=== PATIENT | female | born 1945 | race Caucasian/White ===

== ENCOUNTER 2024-05-29 11:09 | Observation (INO) | payer MEDICARE, SELFPAY ==
[2024-05-29 11:16] VITALS: BP 134/61; PULSE 62; RESP 18; TEMP 36.4; O2SAT 98; BMI 22.1
--- NOTE | 2024-05-29 11:28 | ED_ITS ---
HPI - Fall General Chief Complaint: Fall Stated Complaint: Fall, Mid back pain Time Seen by Provider: 05/29/24 11:21 Source: EMS Mode of arrival: EMS History of Present Illness HPI Narrative: Patient is 78-year-old healthy female who had remote cardiac surgery as a child presents today as modified trauma. She fell down the das on a boot injuring the right side of her back. She did not hit her head or lose consciousness no neck pain. She has not on any anticoagulation or antiplatelet medication. She is complaining of some left knee pain as well. It is quite painful to move and breathe. Related Data Home Medications Medication Instructions Recorded Confirmed atorvastatin 10 mg tablet (Lipitor) 10 mg PO DAILY 05/29/24 05/29/24 diclofenac sodium 75 mg 75 mg PO BID PRN Pain, Moderate 05/29/24 05/29/24 tablet,delayed release zolpidem 10 mg tablet 10 mg PO BEDTIME PRN Sleep 05/29/24 05/29/24 Allergies Allergy/AdvReac Type Severity Reaction Status Date / Time No Known Drug Allergies Allergy Verified 05/29/24 11:47 Patient History Social History household members: spouse Smoking Status: Never smoker alcohol intake: current Smoking Status: Never smoker alcohol intake frequency: 0-2 drinks per day Substance Use Type: marijuana Exam Initial Vital Signs Initial Vital Signs: Vital Signs Temperature 97.6 F 05/29/24 11:16 Pulse Rate 62 05/29/24 11:16 Respiratory Rate 18 05/29/24 11:16 Blood Pressure 134/61 05/29/24 11:16 Pulse Oximetry 98 05/29/24 11:16 Oxygen Delivery Method Room Air 05/29/24 11:16 GENERAL: Alert 78-year-old female in pain HEENT: Head normocephalic,, EOMI, pupils reactive, face symmetric, moist mucous membranes, NECK: Supple, full range of motion, no step-offs, nontender on vertebrae CARDIOVASCULAR: Regular rate and rhythm without murmurs, rubs or gallops. RESPIRATORY: Breath sounds equal bilaterally, no wheezes rales or rhonchi. No crepitations, no subcutaneous air, chest is nontender, no signs of trauma ABDOMEN: Soft, nontender. Normoactive bowel sounds all 4 quadrants. No guarding or rebound. BACK: Significant scoliosis nontender over vertebrae tender right lower ribs. No obvious paradoxical movement PELVIS: stable. EXTREMITIES: Normal range of motion, no clubbing or edema. Right upper extremity: Within normal limits Left upper extremity: Within normal limits Right lower extremity: Within normal limits Left lower extremity:Within normal limits left knee is stable no significant edema or erythema NEUROLOGICAL: Cranial nerves II through XII grossly intact. Normal gait and speech. SKIN: Warm, dry, no petechiae, no rashes or lesions, no contusions or ecchymosis Course Orders Ordered: ED Orders 05/29/24 11:28 CT chest abd pel w con Stat 05/29/24 11:31 CBC Auto Diff [Complete Blood Count AUTO DIFF] Stat CMP [Comprehensive Metabolic Panel] Stat Lactate (Lactic Acid) Stat 05/29/24 14:34 Education, smoking cessation ONGOING 05/29/24 14:35 XR knee LT 3V Stat 05/29/24 14:38 Consult to Physical Therapy Evaluate & Treat RT Consult Eval and Treat NOW 05/30/24 05:00 Basic Metabolic Panel Routine Comprehensive Metabolic Panel Routine Acetaminophen (Acetaminophen 325 Mg Tablet) 650 mg PO Q6H [facility] Last Admin: 05/29/24 16:38 Dose: 650 mg Documented By: CIRO Atorvastatin Calcium (Atorvastatin 20 Mg Tablet) 10 mg PO DAILY JEFF Celecoxib (Celecoxib 200 Mg Capsule) 200 mg PO BID JEFF Docusate Sodium (Docusate 100 Mg Capsule) 200 mg PO BID JEFF Gabapentin (Gabapentin 100 Mg Capsule) 200 mg PO TID [facility] Last Admin: 05/29/24 16:38 Dose: 200 mg Documented By: CIRO Heparin Sodium (Porcine) (Heparin 5,000 Unit/Ml Vial) 5,000 unit SUBCUT BID JEFF Hydromorphone HCl (Hydromorphone 1 Mg Inj) 1 mg IV Q3H PRN PRN Reason: Pain, Severe (7-10) Last Admin: 05/29/24 17:21 Dose: 1 mg Documented By: CIRO Naloxone HCl (Naloxone 0.4 Mg/Ml Vial) 0.2 mg IV Q2MIN PRN PRN Reason: Opiate Reversal Ondansetron HCl (Ondansetron 4 Mg/2 Ml Inj) 4 mg IV Q8HR PRN PRN Reason: Nausea And Vomiting Last Admin: 05/29/24 17:49 Dose: 4 mg Documented By: CIRO Oxycodone HCl (Oxycodone Ir 5 Mg Tablet) 5 mg PO Q3H PRN PRN Reason: Pain, Moderate (4-6) Last Admin: 05/29/24 15:34 Dose: 5 mg Documented By: GILDA Sodium Chloride (Sodium Chloride 0.9% Flush) 10 ml IV PRN PRN PRN Reason: Flush Sodium Chloride (Sodium Chloride 0.9% Flush) 10 ml IV BID JEFF Zolpidem Tartrate (Zolpidem 5 Mg Tablet) 10 mg PO BEDTIME PRN PRN Reason: Sleep Discontinued Medications Acetaminophen (Acetaminophen 325 Mg Tablet) 650 mg PO Q6H [facility] Last Admin: 05/29/24 16:43 Dose: Not Given Documented By: CIRO Hydromorphone HCl (Hydromorphone 0.5 Mg Inj) 0.5 mg IV NOW ONE Stop: 05/29/24 13:45 Last Admin: 05/29/24 13:51 Dose: 0.5 mg Documented By: GILDA Ibuprofen (Ibuprofen 400 Mg Tablet) 400 mg PO Q4H [facility] Last Admin: 05/29/24 16:43 Dose: Not Given Documented By: CIRO Morphine Sulfate (Morphine 2 Mg/Ml Inj) 2 mg IV NOW ONE Stop: 05/29/24 11:30 Last Admin: 05/29/24 11:35 Dose: 2 mg Documented By: GILDA Morphine Sulfate (Morphine 2 Mg/Ml Inj) 2 mg IV NOW ONE Stop: 05/29/24 12:17 Last Admin: 05/29/24 12:19 Dose: 2 mg Documented By: GILDA Vital Signs Vital signs: Vital Signs - 8 hr 05/29/24 11:54 05/29/24 11:55 05/29/24 11:55 Pulse Rate 72 72 Blood Pressure 149/71 H Pulse Oximetry 97 97 05/29/24 12:00 05/29/24 12:00 Pulse Rate 67 Blood Pressure 145/70 H Pulse Oximetry 97 MDM - Fall Lab Data 05/29/24 11:31 05/29/24 11:31 Labs: Lab Results 05/29/24 Range/Units 11:31 WBC 9.0 (4.5-11.0) X10^3/uL RBC 4.42 (4.0-5.2) X10^6/uL Hgb 13.3 (12.0-16.0) g/dL Hct 40.0 (36-46) % MCV 90.5 (80-100) fL MCH 30.1 (26-34) PG MCHC 33.2 (30-36) % RDW 13.3 (11.6-14.8) % Plt Count 214 (150-400) X10^3/uL Neut % (Auto) 77.5 H (50-75) % Lymph % (Auto) 15.7 L (25-40) % [place] % (Auto) 5.9 (3-14) % Eos % (Auto) 0.5 L (2-4) % Baso % (Auto) 0.4 (0-2) % Neut # (Auto) 7000 (9677-7695) /uL Lymph # (Auto) 1400 (0130-0897) /uL [place] # (Auto) 500 (0-900) /uL Eos # (Auto) 0 (0-450) /uL Baso # (Auto) 0 (0-100) /uL Sodium 137 (137-145) mmol/L Potassium 3.9 (3.4-5.1) mmol/L Chloride 106 (98-107) mmol/L Carbon Dioxide 26 (22-32) mmol/L BUN 16 (7-17) mg/dL Creatinine 0.67 (0.52-1.04) mg/dL Estimated GFR > 60 (>60) mL/min BUN/Creatinine Ratio 23.9 H (6-22) Glucose 172 H (80-110) mg/dL Lactate 1.4 (0.7-2.1) mmol/L Calcium 8.6 (8.4-10.2) mg/dL Total Bilirubin 0.7 (0.2-1.3) mg/dL AST 31 (14-36) IU/L ALT 23 (<35) IU/L Alkaline Phosphatase 59 (38-126) U/L Total Protein 6.5 (6.3-8.2) g/dL Albumin 4.0 (3.5-5.0) g/dL Globulin 2.5 (1.7-4.1) g/dL Albumin/Globulin Ratio 1.6 (1.0-2.8) Imaging Data CT scan - abdomen/pelvis: Radiologist's Impression: PROCEDURE: CT CHEST ABD PEL W CON INDICATIONS: fall down boat right post rib pain TECHNIQUE: After the administration of intravenous contrast, 5 mm thick sections acquired from the lung apices to the symphysis. 2.5 mm thick coronal and sagittal reformats were acquired. Additional 7 mm thick coronal maximum intensity projection (MIP) reformats acquired through the lungs. Optional 10-minute delayed imaging may be performed from the kidneys to the bladder. For radiation dose reduction, the following was used: automated exposure control, adjustment of mA and/or kV according to patient size. COMPARISON: None. FINDINGS: Image quality: Diagnostic. CHEST: Lower Neck: No enlarged lymph nodes. Thyroid: No thyroid nodules which require sonographic evaluation. Axillae: No enlarged lymph nodes. Chest Wall: No subcutaneous gas. Lungs and Pleura: Small right pleural effusion. Right basilar density is more likely atelectasis than pulmonary contusion. No pneumothorax. Left lung is clear. Mediastinum: No mediastinal hematomas. Cardiomegaly. Remote midline sternotomy. No pericardial effusion. Thoracic aorta and pulmonary arteries demonstrate normal size and enhancement. No mediastinal or hilar adenopathy. Esophagus is normal in caliber. No hiatal hernia. ABDOMEN: Liver: No lacerations. Gallbladder: Surgically absent Biliary ducts: No biliary dilation. Pancreas: Homogenous enhancement. Spleen: Homogenous enhancement without laceration or hematoma. Adrenal Glands: Symmetric enhancement. Kidneys and Ureters: Symmetric enhancement. No hydronephrosis. No solid mass. No complex renal cystic lesion which requires follow up. Stomach and Bowel: Normal colonic caliber, without significant wall thickening. Sigmoid diverticulosis. Peritoneum: No abnormal intraperitoneal fluid. No free air. Ventral Wall: No hernia. Abdominal Nodes: No retroperitoneal or mesenteric adenopathy by size criteria. Vessels: Aorta and inferior vena cava are normal in size. PELVIS: Pelvic Organs: Uterus is surgically absent.. Bladder: Normal thickness. Pelvic Nodes: No enlarged lymph nodes. Miscellaneous: No inguinal hernias are seen. Bones: Pelvic ring and hip joints appear intact. there are numerous right-sided rib fractures present. There is a markedly comminuted right 11th rib fracture, a segmental markedly comminuted right 10th rib fracture, a comminuted and significantly displaced right 9th rib fracture, a displaced right 8th rib fracture with overriding, and a nondisplaced right 7th rib fracture. These are all posterior. Moderate to severe S shaped thoracolumbar scoliotic curvature. IMPRESSION: 1. Numerous posterior right-sided rib fractures involving the 7th through 11th ribs, many of them are significantly comminuted and displaced 2. Minimal right pleural effusion and associated atelectasis. No pneumothorax. 3. No significant sequelae of acute trauma in the abdomen and pelvis. 4. Remote cholecystectomy and hysterectomy. 5. Diverticulosis. 6. Moderate to severe S shaped thoracolumbar scoliotic curvature. Dictated by: Jake Stephenson M.D. on 05/29/2024 at 12:40 Extremity x-ray #1: Radiologist's Impression: PROCEDURE: XR KNEE LT 3V INDICATIONS: pain TECHNIQUE: 3 views of the knee were acquired. COMPARISON: None. FINDINGS: Bones: No fractures or dislocations. No suspicious bony lesions. 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 Soft tissues: No joint effusion. No suspicious soft tissue calcifications. IMPRESSION: No acute bony abnormality or significant effusion. Degenerative arthritis. Dictated by: Jake Stephenson M.D. on 05/29/2024 at 16:14 MDM Narrative Medical decision making narrative: Patient is 78-year-old female presents with a modified trauma significant right side back pain. CT does show multiple, new mid rib fractures without evidence of pulmonary contusion pneumothorax or liver laceration. She has received multiple doses of pain medication including morphine and Dilaudid. Respiratory therapy has given her incentive spirometer instructions Blood work has been reviewed hemoglobin 13.3 hematocrit 40 creatinine 0.67 Patient elderly female 78 years old with multiple rib fractures requiring multiple doses of pain medication would benefit from observation with Trauma Service. 14:40 Dr. Heller updated patient's symptoms test results and kindly accepts patient Discharge Plan Departure Patient Disposition: Admitted as Observation Clinical Impression: Multiple fractures of ribs of right side Admit Date/Time: 05/29/24 14:58 Admit Provider: Estefany Heller
[2024-05-29] MEDS: MORPHINE 2 MG/ML INJ IV ×2 (11:35→12:19)
[2024-05-29 11:46] LABS: Add Manual Diff / Slide Review NO; Basophils Absolute Auto 0 /uL (0-100); Basophils Percent Auto 0.4 % (0-2); Eosinophils Absolute Auto 0 /uL (0-450); Eosinophils Percent Auto 0.5 % (2-4); Hemoglobin 13.3 g/dL (12.0-16.0); Lymphocytes Absolute Auto 1400 /uL (1100-4500); Lymphocytes Percent Auto 15.7 % (25-40); Mean Corpuscular HGB Conc 33.2 % (30-36); Mean Corpuscular Hemoglobin 30.1 PG (26-34); Mean Corpuscular Volume 90.5 fL (80-100); Monocytes Absolute Auto 500 /uL (0-900); Monocytes Percent Auto 5.9 % (3-14); Neutrophils Absolute Auto 7000 /uL (1500-7000); Neutrophils Percent Auto 77.5 % (50-75); Platelet Count 214 X10^3/uL (150-400); Red Blood Cell Count 4.42 X10^6/uL (4.0-5.2); Red Cell Distribution Width 13.3 % (11.6-14.8)
[2024-05-29 11:54] VITALS: PULSE 72; O2SAT 97
[2024-05-29 11:55] VITALS: BP 149/71; PULSE 72; O2SAT 97
[2024-05-29 12:00] VITALS: BP 145/70; PULSE 67; O2SAT 97
[2024-05-29 12:01] LABS: Alanine Aminotransferase 23 IU/L (<35); Albumin Globulin Ratio 1.6 (1.0-2.8); Alkaline Phosphatase 59 U/L (38-126); Aspartate Aminotransferase 31 IU/L (14-36); BUN Creatinine Ratio 23.9 (6-22); Bilirubin Total 0.7 mg/dL (0.2-1.3); Blood Urea Nitrogen 16 mg/dL (7-17); Calcium 8.6 mg/dL (8.4-10.2); Carbon Dioxide 26 mmol/L (22-32); Chloride 106 mmol/L (98-107); Estimated Glomerular Filt Rate > 60 mL/min (>60); Globulin 2.5 g/dL (1.7-4.1); Glucose 172 mg/dL (80-110); HEMOLYSIS 20 (0-50); Potassium 3.9 mmol/L (3.4-5.1); Sodium 137 mmol/L (137-145); Total Protein 6.5 g/dL (6.3-8.2)
[2024-05-29 12:02] LABS: Lactate (Lactic Acid) 1.4 mmol/L (0.7-2.1)
[2024-05-29] MEDS: HYDROMORPHONE 0.5 MG INJ IV (13:51)
--- NOTE | 2024-05-29 14:35 | DI.RAD.S_ITS ---
PROCEDURE: XR KNEE LT 3V INDICATIONS: pain TECHNIQUE: 3 views of the knee were acquired. COMPARISON: None. FINDINGS: Bones: No fractures or dislocations. No suspicious bony lesions. 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 Soft tissues: No joint effusion. No suspicious soft tissue calcifications. IMPRESSION: No acute bony abnormality or significant effusion. Degenerative arthritis. Dictated by: Jake Stephenson M.D. on 05/29/2024 at 16:14 Approved by: Jake Stephenson M.D. on 05/29/2024 at 16:14
[2024-05-29] MEDS: OXYCODONE IR 5 MG TABLET PO ×2 (15:34→20:12)
--- NOTE | 2024-05-29 15:53 | DI.RAD.S_ITS ---
PROCEDURE: XR CHEST 1V INDICATIONS: trauma TECHNIQUE: One view of the chest was acquired. COMPARISON: None. FINDINGS: Surgical changes and devices: Median sternotomy wires. Lungs and pleura: Lungs are clear. No pleural effusions or pneumothorax. Mediastinum: Mediastinal contours appear normal. Heart size is enlarged. Bones and chest wall: No suspicious bony lesions. Dextroscoliotic curvature. Overlying soft tissues appear unremarkable. IMPRESSION: Cardiomegaly. No acute pulmonary process. Rib fractures are better seen on prior CT scan. Dictated by: Papo Ventura M.D. on 05/29/2024 at 16:58 Approved by: Papo Ventura M.D. on 05/29/2024 at 16:59
--- NOTE | 2024-05-29 15:56 | PM.HP.1 ---
History of Present Illness History of Present Illness Date Patient Seen: 05/29/24 Time Patient Seen: 15:57 Chief complaint: Fall, Mid back pain Narrative: Accidentally fell from deck of boat into the cabin space. Sharp mid back pain, SOB, left knee pain. No LOC PFSH Social History Smoking Status: Never smoker Meds Home Medications and Allergies Home Medications Medication Instructions Recorded Confirmed Type TETANUS & DIPHTHERIA TOX,ADULT 0.5 ml IM ONCE ##1 01/29/12 Rx (Tetanus Diphtheria Toxoids) TRIAMCINOLONE ACETONIDE (#KENALOG) 0 TP BID ##1 01/29/12 Rx fluoxetine 10 mg tablet 10 mg PO QDAY ##90 01/29/12 Rx zolpidem 10 mg tablet 10 mg NG HSP ##30 01/29/12 Rx AZITHROMYCIN (#ZITHROMAX Z-LILI) 250 mg PO QDAY ##6 04/18/12 Rx ciprofloxacin HCl 500 mg tablet 500 mg PO BID ##6 12 Rx (Cipro) Allergies Allergy/AdvReac Type Severity Reaction Status Date / Time No Known Drug Allergies Allergy Verified 05/29/24 11:47 Review of Systems Review of Systems Narrative: new dx of arthritis, takes calcium supplements for decreased bone density ROS: Yes All systems reviewed with the patient and are negative except as otherwise documented Exam Vital Signs (past 8 hours): - 05/29/24 11:16 05/29/24 11:54 05/29/24 11:55 Temperature 97.6 F Pulse Rate 62 72 72 Respiratory Rate 18 Blood Pressure 134/61 Pulse Oximetry 98 97 97 Oxygen Delivery Method Room Air 05/29/24 11:55 05/29/24 12:00 05/29/24 12:00 Temperature Pulse Rate 67 Respiratory Rate Blood Pressure 149/71 H 145/70 H Pulse Oximetry 97 Oxygen Delivery Method Oxygen Delivery Method Room Air Narrative Exam Narrative: Jones CT films reviewed and left knee reviewed. Right sided rib fractures 7-11. Const General: cooperative and healthy appearing Nutritional Appearance: average body habitus Orientation: alert, awake and oriented x3 HENMT Head: normocephalic and atraumatic Ears: hearing grossly normal bilaterally Face and sinus: normal facial exam Eyes General: appearance normal, both eyes and all related structures Sclera: sclerae normal Neck Neck: trachea midline and No JVD Chest Chest: tenderness (right posterior. no crepitus) Resp Effort & Inspection: normal respiratory effort and able to speak in complete sentences Cardio Rate: regular rate Rhythm: regular rhythm GI Palpation: soft and No tender Back/Spine/Pelvis Back: back tenderness (right sided, no crepitus) Skin General: atrophy Neuro General: patient alert, patient awake and patient oriented x3 Cognition: normal cognition Speech: speech normal Extrem General: normal exam except as noted (mild medial edema, films show no chris injury) Psych Mental Status: mental status grossly normal Speech and Movement: speech and movement normal Affect: normal affect Judgment: judgment good Objective Labs 05/29/24 11:31 05/29/24 11:31 Labs: Laboratory Results - last 24 hr 05/29/24 11:31 WBC 9.0 RBC 4.42 Hgb 13.3 Hct 40.0 MCV 90.5 MCH 30.1 MCHC 33.2 RDW 13.3 Plt Count 214 Neut % (Auto) 77.5 H Lymph % (Auto) 15.7 L [place] % (Auto) 5.9 Eos % (Auto) 0.5 L Baso % (Auto) 0.4 Neut # (Auto) 7000 Lymph # (Auto) 1400 [place] # (Auto) 500 Eos # (Auto) 0 Baso # (Auto) 0 Sodium 137 Potassium 3.9 Chloride 106 Carbon Dioxide 26 BUN 16 Creatinine 0.67 Estimated GFR > 60 BUN/Creatinine Ratio 23.9 H Glucose 172 H Lactate 1.4 Calcium 8.6 Total Bilirubin 0.7 AST 31 ALT 23 Alkaline Phosphatase 59 Total Protein 6.5 Albumin 4.0 Globulin 2.5 Albumin/Globulin Ratio 1.6 Assessment & Plan Assessment & Plan narrative: Trauma, fall. Right sided rib fractures -. Small pleural effusion. Left knee contusion. Plan: Pulmonary toilet, pain control. Repeat CXR in am. Time-Based Coding :: 40 minutes total spent with patient and on the chart (including review of chart, obtaining history, exam, reviewing outside data, placing orders, documenting exam and treatment plan, and counseling patient) on 05/29/24.
[2024-05-29 16:15] VITALS: BP 147/63; PULSE 64; RESP 15; TEMP 36.1; O2SAT 98
[2024-05-29] MEDS: GABAPENTIN 100 MG CAPSULE 200 MG PO ×2 (16:38→20:12)
[2024-05-29] MEDS: ACETAMINOPHEN 325 MG TABLET 650 MG PO (16:38)
[2024-05-29] MEDS: HYDROMORPHONE 1 MG INJ IV (17:21)
[2024-05-29 17:25] VITALS: BMI 22.2
[2024-05-29] MEDS: ONDANSETRON 4 MG/2 ML INJ IV (17:49)
--- NOTE | 2024-05-29 19:29 | PC.NURSE ---
Admit note Pt arrived on floor, VSS, SPO2 on continuous monitoring - satting high 90s. Contacted provider about pain control, cxray and medication orders/clarification. Performed medication reconciliation with assistance from patient and family member as accurately as possible. Pt counseled on informing nurse of worsening pain, shortness of breath, chest pain and use of incentive spirometer.
[2024-05-29 20:00] VITALS: BP 135/65; PULSE 66; RESP 17; TEMP 36.6; O2SAT 97
[2024-05-29] MEDS: CELECOXIB 200 MG CAPSULE PO (20:11)
[2024-05-29] MEDS: DOCUSATE 100 MG CAPSULE 200 MG PO (20:12)
[2024-05-29] MEDS: SODIUM CHLORIDE 0.9% FLUSH 10 ML IV (20:13)
[2024-05-29] MEDS: HEPARIN 5,000 UNIT/ML VIAL 5000 UNIT SUBCUT (20:17)
[2024-05-30] VITALS: BP 119/52; PULSE 54; RESP 16; TEMP 36.4; O2SAT 96
[2024-05-30 04:00] VITALS: BP 116/75; PULSE 96; RESP 18; TEMP 36.6; O2SAT 97
[2024-05-30] MEDS: OXYCODONE IR 5 MG TABLET PO ×4 (04:13→20:09)
[2024-05-30] MEDS: ACETAMINOPHEN 325 MG TABLET 650 MG PO ×4 (04:21→23:39)
--- NOTE | 2024-05-30 05:00 | DI.RAD.S_ITS ---
PROCEDURE: XR CHEST 1V INDICATIONS: multiple rib fractures TECHNIQUE: One view of the chest was acquired. COMPARISON: [facility], CR, XR CHEST 1V, 05/29/2024, 15:57. FINDINGS: Surgical changes and devices: Median sternotomy wires are seen. Lungs and pleura: There is blunting of right costophrenic angle suggestive of small right pleural effusion. Right basilar infiltrate/atelectasis is also noted. No gross pneumothorax. Mild pulmonary vascular congestion is also seen. Mediastinum: Tortuous thoracic aorta and cardiomegaly is noted. Bones and chest wall: No suspicious bony lesions. Overlying soft tissues appear unremarkable. Moderate rightward curvature of thoracolumbar spine is seen. IMPRESSION: Cardiomegaly and mild congestion with small right pleural effusion and right basilar infiltrate versus atelectasis. No gross pneumothorax. Dictated by: Stefan Pennington M.D. on 05/30/2024 at 8:25 Approved by: Stefan Pennington M.D. on 05/30/2024 at 8:28
[2024-05-30 05:47] LABS: Add Manual Diff / Slide Review NO; Basophils Absolute Auto 0 /uL (0-100); Basophils Percent Auto 0.2 % (0-2); Eosinophils Absolute Auto 0 /uL (0-450); Eosinophils Percent Auto 0.2 % (2-4); Hemoglobin 12.5 g/dL (12.0-16.0); Lymphocytes Absolute Auto 1200 /uL (1100-4500); Lymphocytes Percent Auto 12.6 % (25-40); Mean Corpuscular HGB Conc 33.8 % (30-36); Mean Corpuscular Hemoglobin 30.2 PG (26-34); Mean Corpuscular Volume 89.4 fL (80-100); Monocytes Absolute Auto 700 /uL (0-900); Monocytes Percent Auto 7.7 % (3-14); Neutrophils Absolute Auto 7500 /uL (1500-7000); Neutrophils Percent Auto 79.3 % (50-75); Platelet Count 177 X10^3/uL (150-400); Red Blood Cell Count 4.14 X10^6/uL (4.0-5.2); Red Cell Distribution Width 13.3 % (11.6-14.8); White Blood Cell Count 9.4 X10^3/uL (4.5-11.0)
[2024-05-30 06:08] LABS: Alanine Aminotransferase 19 IU/L (<35); Albumin 3.4 g/dL (3.5-5.0); Albumin Globulin Ratio 1.5 (1.0-2.8); Alkaline Phosphatase 57 U/L (38-126); Aspartate Aminotransferase 26 IU/L (14-36); Bilirubin Total 0.8 mg/dL (0.2-1.3); Blood Urea Nitrogen 10 mg/dL (7-17); Calcium 8.5 mg/dL (8.4-10.2); Carbon Dioxide 30 mmol/L (22-32); Chloride 106 mmol/L (98-107); Estimated Glomerular Filt Rate > 60 mL/min (>60); Globulin 2.2 g/dL (1.7-4.1); Glucose 82 mg/dL (80-110); HEMOLYSIS < 15 (0-50); Sodium 136 mmol/L (137-145); Total Protein 5.6 g/dL (6.3-8.2)
[2024-05-30 08:00] VITALS: BP 126/54; PULSE 68; RESP 15; O2SAT 95
[2024-05-30] MEDS: CELECOXIB 200 MG CAPSULE PO ×2 (09:08→20:09)
[2024-05-30] MEDS: ATORVASTATIN 20 MG TABLET 10 MG PO (09:08)
[2024-05-30] MEDS: GABAPENTIN 100 MG CAPSULE 200 MG PO ×3 (09:08→20:08)
[2024-05-30] MEDS: DOCUSATE 100 MG CAPSULE 200 MG PO ×2 (09:08→20:09)
[2024-05-30] MEDS: HYDROMORPHONE 1 MG INJ IV (09:15)
[2024-05-30] MEDS: SODIUM CHLORIDE 0.9% FLUSH 10 ML IV ×2 (09:16→20:18)
[2024-05-30] MEDS: HEPARIN 5,000 UNIT/ML VIAL 5000 UNIT SUBCUT ×2 (09:16→20:08)
--- NOTE | 2024-05-30 09:48 | PM.PN.1 ---
Subjective Subjective Date Patient Seen: 05/30/24 Time Patient Seen: 12:46 Interval history: Adequate pain control Using incentive spirometry Exam Vital Signs (past 8 hours): - 05/30/24 04:00 05/30/24 07:00 05/30/24 08:00 Temperature 97.8 F Pulse Rate 96 H 68 Respiratory Rate 18 15 Blood Pressure 116/75 126/54 L Pulse Oximetry 97 95 Oxygen Delivery Method Room Air Oxygen Flow Rate 0 0 Oxygen Delivery Method Room Air Oxygen Flow Rate 0 Narrative Exam Narrative: General elderly woman alert oriented no acute distress Chest nonlabored respiration Cardiac regular rate and rhythm. Objective Labs 05/30/24 04:06 05/30/24 04:06 Labs: Laboratory Results - last 24 hr 05/29/24 05/30/24 11:31 04:06 WBC 9.0 9.4 RBC 4.42 4.14 Hgb 13.3 12.5 Hct 40.0 37.0 MCV 90.5 89.4 MCH 30.1 30.2 MCHC 33.2 33.8 RDW 13.3 13.3 Plt Count 214 177 Neut % (Auto) 77.5 H 79.3 H Lymph % (Auto) 15.7 L 12.6 L [place] % (Auto) 5.9 7.7 Eos % (Auto) 0.5 L 0.2 L Baso % (Auto) 0.4 0.2 Neut # (Auto) 7000 7500 H Lymph # (Auto) 1400 1200 [place] # (Auto) 500 700 Eos # (Auto) 0 0 Baso # (Auto) 0 0 Sodium 137 136 L Potassium 3.9 4.0 Chloride 106 106 Carbon Dioxide 26 30 BUN 16 10 Creatinine 0.67 0.50 L Estimated GFR > 60 > 60 BUN/Creatinine Ratio 23.9 H 20.0 Glucose 172 H 82 Lactate 1.4 Calcium 8.6 8.5 Total Bilirubin 0.7 0.8 AST 31 26 ALT 23 19 Alkaline Phosphatase 59 57 Total Protein 6.5 5.6 L Albumin 4.0 3.4 L Globulin 2.5 2.2 Albumin/Globulin Ratio 1.6 1.5 PFSH Social History household members: spouse Smoking Status: Never smoker alcohol intake: current Assessment & Plan Assessment and plan (1) Multiple fractures of ribs of right side: Problem details: -incentive spirometry -multimodal pain control -physical therapy Qualifiers: Encounter type: initial encounter Fracture type: closed Qualified Code(s): S22.41XA - Multiple fractures of ribs, right side, initial encounter for closed fracture Status: Acute Time-Based Coding :: [TOTAL MINUTES] spent with patient and on the chart (including review of chart, obtaining history, exam, reviewing outside data, placing orders, documenting exam and treatment plan, and counseling patient) on [DATE]. Quality VTE Deep Vein Thrombosis/Pulmonary Embolism Present on Admission: No
[2024-05-30] MEDS: ONDANSETRON 4 MG/2 ML INJ IV (09:51)
--- NOTE | 2024-05-30 10:54 | CM.DANOTE ---
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 PCP: Dr Strong Payer: MICHAEL/BRET Reviewed chart, met w/patient and her daughter Denise, introduced self and role. Patient lives independently with spouse, [place] Patient [place] to [place] and has numerous family members available to assist throughout her recovery. Daughter planning to make reservations on multiple ferry times to ensure patient can get back to [place] upon discharge. No barriers identified at this time to patient's safe discharge home w/family to assist; close outpatient f/u recommended. CM team will plan to follow clinical course closely in case any DC needs or concerns arise. CALLIE Ayala Discharge Planning/Care Management CM Discharge Assessment Start: 05/30/24 10:51 Freq: Status: Active Protocol: Document 05/30/24 10:51 TIFFANIE (Rec: 05/30/24 10:54 TIFFANIE [id number]) Discharge Planning Assessment Assigned Dancer Or Choreographer CALLIE Abraham DPOA/Assigned Designee Name Andrei Leo, spouse [phone] Contact Information Denise Mejia, daughter Advance Directives? Yes Advance Directives on File Yes History Provided By Patient,Family Member,Medical Record Prior Living Arrangements House Household Members spouse Type of transporation used prior to Drives own vehicle admit Independent with ADL's Yes Is patient alert and oriented? Yes Barriers to Discharge No Discharge Plan Home Transportation Arrangement Family Referrals Initiated None needed
--- NOTE | 2024-05-30 11:50 | PT.IIE ---
Current Diagnoses Multiple fractures of ribs, right side, initial encounter for closed fracture (05/29/24) Physical Therapy Inpatient Evaluation/Re-Eval M1 PT/OT-IP Prior Functional Status Start: 05/30/24 13:31 Freq: NEEDED Status: Active Protocol: Document 05/30/24 11:50 AB (Rec: 05/30/24 13:46 AB [id number]) Medical Review Prior Functional Status Medical History Reviewed Yes Communication able to make needs known Mobility and Gait pt stated that she was independent with all mobilities and ambulation without AD Social History Household Members spouse Living Arrangements House Number of Floors (Floors) One Floor Number of Stairs To Enter/Railing? no steps to enter Home Environment High Toilet,Walk in Shower Home Equipment Hand Held Shower M2 PT-IP Current Condition Start: 05/30/24 13:31 Freq: NEEDED Status: Active Protocol: Document 05/30/24 11:50 AB (Rec: 05/30/24 13:46 AB [id number]) Physical Therapy Current Condition Current Condition Evaluation Date 05/30/24 Treatment Diagnosis GLF; R posterior rib fx ( 7-11 ); difficulty in walking Onset Date 05/29/24 M3 PT-IP Subjective Start: 05/30/24 13:31 Freq: NEEDED Status: Active Protocol: Document 05/30/24 11:50 AB (Rec: 05/30/24 13:46 AB [id number]) Subjective Physical Therapy Visit Type Type Initial Evaluation Visit Start Time 11:50 Visit Stop Time 12:20 Number of CUSTOMER RELATIONSHIP SPECIALIST Visits 0 Physical Therapy Visit Comments Patient Comments agreeable to do PT Therapy Pain Assessment Pain When Pain Assessed At Rest Pain Present Pain Present Pain Reported Location Left Knee Intensity 7 Scale Used Numeric (0 - 10) Pain Management Techniques Distraction,Modification of Treatment,Re-positioning, Timing of Activity with Medications Right Ribs Intensity 4 Scale Used Numeric (0 - 10) Pain Management Techniques Apply Cold,Distraction, Modification of Treatment,Re- positioning,Timing of Activity with Medications M4 PT-IP Mobility and Gait Start: 05/30/24 13:31 Freq: NEEDED Status: Active Protocol: Document 05/30/24 11:50 AB (Rec: 05/30/24 13:46 AB [id number]) PT-Bed Mobility Assessment Supine to Sit Supine to Sit Standby Assistance PT-Transfer Assessment Sit to and From Stand Sit to and from Stand Contact Guard Assistance,1 Person Assistance,Use of Upper Extremities Equipment Transfer Assistive Device None,Gait Belt Orthotic/Prosthetic Devices or Brace: No Transfers Transfer Destination Chair Transfer Technique ambulated Transfer Ability Level of Assist Contact Guard Assistance, Minimal Assistance,1 Person Assistance,Use of Upper Extremities Comments Mobility Comments pt supine in bed and agreeable to do PT. obtained PLOF and home set up from pt. BP: 133/ 78. at RA and no SOB. O2 sat 97% pt completed supine to sit SBA . pt used pillow to support R side/ribs. pt able to sit on EOB SBA. completed sit to stand CGA and ambulated in room without AD min A. presents with antalgic gait and pt tends to reach for support. pt sat on chair. educated pt regarding current mobility and safety and agreed to use an AD. educated pt on use of SPC. pt completed ambulation in room using SPC ~ 40 ft with initial min A but after a few ft CGA and cues for safety. pt agreed that she is steadier with SPC. pt sat on chair. positioned on the chair. call light and table placed within reach. daughter/grand daughter in room and agreed for pt to use SPC at this time. daughter stated that she will buy a SPC for pt. Gait Assessment Gait Gait Assistance Required: Contact Guard Assist,Minimum Assistance Distance (Feet) 40 Able to Maintain Weight Bearing Status Yes During Gait Assistive Devices Assistive Device None,Gait Belt,Straight Cane Orthotic/Prosthetic Devices or Brace: No Gait Deviations General Gait Pattern Antalgic,Decreased Stride Length,Decreased Feet Clearance Factors Limiting Gait Function Factors Limiting Gait Function Decreased Activity Tolerance, Decreased Strength,Limited Range of Motion,Pain,Poor Balance,Poor Safety Awareness PT-Balance Assessment Sitting Balance and Reactions Static Sitting Balance Ability Normal Dynamic Sitting Balance Ability Good Standing Balance and Reactions Static Standing Balance Ability Fair Dynamic Standing Balance Ability Fair Device Used SPC M5 PT-IP Objective Assessments Start: 05/30/24 13:31 Freq: NEEDED Status: Active Protocol: Document 05/30/24 11:50 AB (Rec: 05/30/24 13:46 AB [id number]) Orientation Orientation/Cognition Level of Alertness Alert Orientation Name,Place,Situation Language Function Ability No Deficits Noted Safety Awareness Decreased Safety Awareness Memory Description No Deficits Noted Gross Range of Motion Lower Extremity ROM Assessment Within Functional Limits Strength Lower Extremity Strength Assessment Within Functional Limits Sensation Assessment Sensation Gross Sensation WNL Muscle Tone Muscle Tone WNL Yes M6 PT-IP Treatment Start: 05/30/24 13:31 Freq: NEEDED Status: Active Protocol: Document 05/30/24 11:50 AB (Rec: 05/30/24 13:46 AB [id number]) Physical Therapy Treatment Education Education Provided Safety M7 PT-IP Assessment and Plan Start: 05/30/24 13:31 Freq: NEEDED Status: Active Protocol: Document 05/30/24 11:50 AB (Rec: 05/30/24 13:46 AB [id number]) PT Summary Assessment and Plan Potential Rehabilitation Potential Fair Status of Condition at Evaluation Evolving Summary Impairments Pain,ROM,Strength,Balance, Coordination,Sensation,Tone, Cognition,Bed Mobility, Transfers,Gait,Activity Tolerance Assessment Summary pt is a 78 y/o F s/p GLF and sustained R posterior rib fractures 7-. pt also c/o L knee pain but with (-) imaging result for fractures. pt requiring min A with ambulation without AD and presents with unsteady gait and L knee pain contributing to unsteadiness at this time. educated pt with use of SPC and able to ambulation CGA and cues and pt agreed to use SPC at this time. will continue to assess progress. Goals Bed Mobility Goal Independent Transfer Goal Independent,Cane Gait Goal Independent,Cane Gait Distance 200 Other Goals improve transfers and ambulation without AD mod I 300 ft Days to Meet Goals 10 Frequency of Treatment Frequency Of Treatment Once a Day Treatment Plan Physical Therapy Treatment Plan Bed Mobility Training,Transfer Training,Gait Training, Therapeutic Exercise,Balance Retraining,Discharge Planning, Hot or Cold Pack,Neuromuscular Re-ed,Coordination Retraining ,Manual Therapy Precautions Other Precautions falls Recommendations To Nursing Amount of Assist Needed 1 Person Assist Discharge Recommendations PT Discharge Recommendations Home with Assistance, Outpatient PT Equipment Needed for Home Before SPC Discharge Transportation Needs at Discharge Private Vehicle,Wheelchair/ Cabulance
[2024-05-30 12:00] VITALS: BP 132/63; PULSE 68; RESP 16; TEMP 36.6; O2SAT 97
[2024-05-30 18:00] VITALS: BP 112/50; PULSE 66; RESP 16; O2SAT 97
[2024-05-30 20:25] VITALS: BP 124/51; PULSE 61; RESP 18; TEMP 36.8; O2SAT 97
[2024-05-31] VITALS: BP 120/46; PULSE 64; RESP 18; TEMP 36.3; O2SAT 96
[2024-05-31] MEDS: OXYCODONE IR 5 MG TABLET PO ×5 (02:09→20:00)
[2024-05-31 04:00] VITALS: BP 107/49; PULSE 61; RESP 16; TEMP 36.1; O2SAT 95
[2024-05-31] MEDS: ACETAMINOPHEN 325 MG TABLET 650 MG PO ×3 (04:57→17:57)
[2024-05-31 07:50] VITALS: BP 125/55; PULSE 67; RESP 16; TEMP 36.7; O2SAT 94
[2024-05-31] MEDS: ATORVASTATIN 20 MG TABLET 10 MG PO (08:17)
[2024-05-31] MEDS: DOCUSATE 100 MG CAPSULE 200 MG PO ×2 (08:19→20:00)
[2024-05-31] MEDS: CELECOXIB 200 MG CAPSULE PO ×2 (08:19→20:00)
[2024-05-31] MEDS: HEPARIN 5,000 UNIT/ML VIAL 5000 UNIT SUBCUT ×2 (08:20→20:00)
[2024-05-31] MEDS: SODIUM CHLORIDE 0.9% FLUSH 10 ML IV ×2 (08:20→20:41)
[2024-05-31] MEDS: GABAPENTIN 100 MG CAPSULE 200 MG PO ×3 (08:20→20:00)
--- NOTE | 2024-05-31 09:00 | PT.IPTN ---
Current Diagnoses Multiple fractures of ribs, right side, initial encounter for closed fracture (05/29/24) Physical Therapy Treatment Note M2 PT-IP Current Condition Start: 05/30/24 13:31 Freq: NEEDED Status: Active Protocol: Document 05/30/24 11:50 AB (Rec: 05/30/24 13:46 AB [id number]) Physical Therapy Current Condition Current Condition Evaluation Date 05/30/24 Treatment Diagnosis GLF; R posterior rib fx ( 7-11 ); difficulty in walking Onset Date 05/29/24 M3 PT-IP Subjective Start: 05/30/24 13:31 Freq: NEEDED Status: Active Protocol: Document 05/31/24 09:00 AB (Rec: 05/31/24 12:17 AB [id number]) Subjective Physical Therapy Visit Type Type Treatment Note Visit Start Time 09:00 Visit Stop Time 09:40 Number of WOOD WINDOW [employer] DOOR CRAFTSMAN Visits 0 Physical Therapy Visit Comments Patient Comments agreeable to do PT Therapy Pain Assessment Pain When Pain Assessed At Rest Pain Present Pain Present Pain Reported Location Left Knee Scale Used pain scale not stated Pain Management Techniques Distraction,Modification of Treatment,Re-positioning, Timing of Activity with Medications Right Ribs Scale Used pain scale not stated Pain Management Techniques Distraction,Modification of Treatment,Re-positioning, Timing of Activity with Medications M4 PT-IP Mobility and Gait Start: 05/30/24 13:31 Freq: NEEDED Status: Active Protocol: Document 05/31/24 09:00 AB (Rec: 05/31/24 12:17 AB [id number]) PT-Bed Mobility Assessment Rolling Type of Rolling Log Rolling Level of Assist Standby Assistance Supine to Sit Supine to Sit Standby Assistance Sit to Supine Sit to Supine Standby Assistance,Minimal Assistance PT-Transfer Assessment Sit to and From Stand Sit to and from Stand Standby Assistance,1 Person Assistance,Use of Upper Extremities Equipment Transfer Assistive Device Gait Belt,Small Based Quad Cane Orthotic/Prosthetic Devices or Brace: No Transfers Transfer Destination Toilet Transfer Technique ambulated Transfer Ability Level of Assist Standby Assistance,1 Person Assistance,Use of Upper Extremities Comments Mobility Comments pt sitting on the chair and family in room with pt. pt with questions regarding DME needs. informed pt regarding toilet safety frame. pt already got a SPC. pt complete sit to stand from the chair SBA and ambulated in room using SPC SBA ~ 30 ft. pt sat on EOB. Bed mobility training: pt educated on log roll bed mobility. c/o increase R sided pain affecting bed mobility. attempted log roll on L initially and pt required min A for sit to supine to elevate LE up the bed. SBA to supine to sit. pt attempted again on R side and completed SBA and cues. pt repeated x 3. pt uses pillow to splint R trunk side . pt agreed to do stairs and ambulated in the hallway ~ 300 ft using SPC SBA. No LOB. pt completed up/down steps using R rail ascending SBA. pt ambulated back to her room. Assessed ambulation without AD and pt completed ~ 20 ft SBA to CGA but continues to have unsteady antalgic gait. pt agreed to use SPC at this time. pt requested to use the toilet and ambulated to the toilet SBA using SPC. Left pt with family. pt and family without further concerns. informed pt regarding d/c from PT and pt agreed. Gait Assessment Gait Gait Assistance Required: Standby Assistance Distance (Feet) 300 Able to Maintain Weight Bearing Status Yes During Gait Assistive Devices Assistive Device None,Straight Cane Orthotic/Prosthetic Devices or Brace: No Gait Deviations General Gait Pattern Antalgic,Decreased Stride Length,Decreased Feet Clearance Factors Limiting Gait Function Factors Limiting Gait Function Decreased Activity Tolerance, Decreased Strength,Limited Range of Motion,Pain,Poor Balance,Poor Safety Awareness Stair Climbing Assessment Evaluation Level of Assist On Stairs Standby Assistance Devices Stair Climbing Assistive Devices Right Railing Technique/Endurance Stair Climbing Direction Ascend and Descend Stair Climbing Technique Step to Step Number of Steps Climbed 3 Stair Climbing Set # Repetitions (reps) 1 M5 PT-IP Objective Assessments Start: 05/30/24 13:31 Freq: NEEDED Status: Active Protocol: Document 05/30/24 11:50 AB (Rec: 05/30/24 13:46 AB [id number]) Orientation Orientation/Cognition Level of Alertness Alert Orientation Name,Place,Situation Language Function Ability No Deficits Noted Safety Awareness Decreased Safety Awareness Memory Description No Deficits Noted Gross Range of Motion Lower Extremity ROM Assessment Within Functional Limits Strength Lower Extremity Strength Assessment Within Functional Limits Sensation Assessment Sensation Gross Sensation WNL Muscle Tone Muscle Tone WNL Yes M6 PT-IP Treatment Start: 05/30/24 13:31 Freq: NEEDED Status: Active Protocol: Document 05/31/24 09:00 AB (Rec: 05/31/24 12:17 AB [id number]) Physical Therapy Treatment Education Education Provided Safety M7 PT-IP Assessment and Plan Start: 05/30/24 13:31 Freq: NEEDED Status: Active Protocol: Document 05/31/24 09:00 AB (Rec: 05/31/24 12:17 AB [id number]) PT Summary Assessment and Plan Potential Rehabilitation Potential Good Summary Impairments Pain,ROM,Strength,Balance, Coordination,Sensation,Tone, Cognition,Bed Mobility, Transfers,Gait,Activity Tolerance Progress Towards Goals Progressing Toward Goals Assessment Summary pt progressing well with mobility and requiring SBA using SPC. Assess ambulation without AD and pt continues to have unsteady antalgic gait and pt still c/o L knee pain but better compared to yesterday per pt. pt agreed to use SPC at this time for safety. pt plans to go home and spouse to assist her. No further PT intervention indicated at this time. pt agreed with d/c PT. family has been ambulating pt in room using SPC. Nurse aware. Goals Bed Mobility Goal Independent Transfer Goal Independent,Cane Gait Goal Independent,Cane Gait Distance 200 Other Goals improve transfers and ambulation without AD mod I 300 ft Days to Meet Goals 10 Frequency of Treatment Frequency Of Treatment Discharge Treatment Plan Physical Therapy Treatment Plan Bed Mobility Training,Transfer Training,Gait Training, Therapeutic Exercise,Balance Retraining,Discharge Planning, Hot or Cold Pack,Neuromuscular Re-ed,Coordination Retraining ,Manual Therapy Precautions Other Precautions falls Recommendations To Nursing Amount of Assist Needed 1 Person Assist Discharge Recommendations PT Discharge Recommendations Home with Assistance, Outpatient PT Transportation Needs at Discharge Private Vehicle
[2024-05-31 11:54] VITALS: BP 106/53; PULSE 65; RESP 17; TEMP 36.6; O2SAT 96
--- NOTE | 2024-05-31 13:44 | PM.PN.1 ---
Subjective Subjective Date Patient Seen: 05/31/24 Time Patient Seen: 13:44 Interval history: Devora feels much better today than she did yesterday. She has been up and walking. She has showered. She lives on [address] Exam Vital Signs (past 8 hours): - 05/31/24 07:00 05/31/24 07:50 05/31/24 11:54 Temperature 98.1 F 97.8 F Pulse Rate 67 65 Respiratory Rate 16 17 Blood Pressure 125/55 L 106/53 L Pulse Oximetry 94 96 Oxygen Delivery Method Room Air Oxygen Flow Rate 0 0 Oxygen Delivery Method Room Air Oxygen Flow Rate 0 Narrative Exam Narrative: Tender to palpation of the right lateral chest wall No crepitus Objective Labs 05/30/24 04:06 05/30/24 04:06 [facility] Social History household members: spouse Smoking Status: Never smoker alcohol intake: current Assessment & Plan Assessment and plan (1) Multiple fractures of ribs of right side: Problem details: -incentive spirometry -multimodal pain control -physical therapy Qualifiers: Encounter type: initial encounter Fracture type: closed Qualified Code(s): S22.41XA - Multiple fractures of ribs, right side, initial encounter for closed fracture Status: Acute Plan Plan for discharge home tomorrow. Time-Based Coding :: [TOTAL MINUTES] spent with patient and on the chart (including review of chart, obtaining history, exam, reviewing outside data, placing orders, documenting exam and treatment plan, and counseling patient) on [DATE]. Quality VTE Deep Vein Thrombosis/Pulmonary Embolism Present on Admission: No
[2024-05-31 15:00] VITALS: BP 118/57; PULSE 68; RESP 20; TEMP 36.4; O2SAT 95
[2024-05-31 20:00] VITALS: BP 101/52; PULSE 69; RESP 17; TEMP 36.4; O2SAT 94
[2024-06-01] VITALS: BP 109/60; PULSE 73; RESP 17; TEMP 37; O2SAT 96
[2024-06-01] MEDS: OXYCODONE IR 5 MG TABLET PO ×3 (01:48→08:54)
[2024-06-01 04:00] VITALS: BP 121/61; PULSE 71; RESP 18; TEMP 36.3; O2SAT 97
[2024-06-01] MEDS: ACETAMINOPHEN 325 MG TABLET 650 MG PO ×2 (05:05→10:55)
[2024-06-01 08:00] VITALS: BP 136/74; PULSE 92; RESP 16; TEMP 36.6; O2SAT 95
[2024-06-01] MEDS: ATORVASTATIN 20 MG TABLET 10 MG PO (08:41)
[2024-06-01] MEDS: DOCUSATE 100 MG CAPSULE 200 MG PO (08:42)
[2024-06-01] MEDS: HEPARIN 5,000 UNIT/ML VIAL 5000 UNIT SUBCUT (08:42)
[2024-06-01] MEDS: CELECOXIB 200 MG CAPSULE PO (08:42)
[2024-06-01] MEDS: GABAPENTIN 100 MG CAPSULE 200 MG PO (08:42)
[2024-06-01] MEDS: SODIUM CHLORIDE 0.9% FLUSH 10 ML IV (08:55)
--- NOTE | 2024-06-01 10:15 | P.DS_ITS ---
History of Present Illness History of Present Illness Date Patient Seen: 06/01/24 Time Patient Seen: 10:15 Chief complaint: Fall, Mid back pain Discharge Providers Provider Date of admission: 05/29/24 14:58 Discharge Date: 06/01/24 Consults: 05/29/24 14:38 Consult to Physical Therapy Evaluate & Treat Comment: rib fractures Physician Instructions: Evaluate and Treat Discharge provider: Iker Ansari MD Summary Hospital Course Discharge Diagnosis: Multiple rib fracture Hospital Course: The patient was admitted for multiple rib fractures. Pain control and pulmonary hygiene were provided. She felt well on 06/01/2024 and was discharged home. Exam Vital Signs (past 8 hours): - 06/01/24 04:00 06/01/24 08:00 Temperature 97.3 F L 97.8 F Pulse Rate 71 92 H Respiratory Rate 18 16 Blood Pressure 121/61 136/74 Pulse Oximetry 97 95 Oxygen Flow Rate 0 Oxygen Delivery Method Room Air Oxygen Flow Rate 0 Objective Labs 05/30/24 04:06 05/30/24 04:06 [facility] Social History household members: spouse Smoking Status: Never smoker alcohol intake: current Discharge Plan Discharge Plan Patient Disposition: Home Discharge orders & Medications Prescriptions: New oxycodone 5 mg capsule 5 mg PO Q8H PRN (Reason: pain) Qty: 10 0RF celecoxib [Celebrex] 200 mg capsule 200 mg PO BID Qty: 14 0RF gabapentin [Neurontin] 300 mg capsule 300 mg PO BID Qty: 14 0RF Continued atorvastatin [Lipitor] 10 mg Tablet 10 mg PO DAILY zolpidem 10 mg Tablet 10 mg PO BEDTIME PRN (Reason: Sleep) diclofenac sodium 75 mg Tablet,Delayed Release (Dr/Ec) 75 mg PO BID PRN (Reason: Pain, Moderate) Other Ambulatory Orders: Gabapentin (Routine) Facility: [facility] - Location: Laboratory Ordered By: Iker Ansari Gabapentin (Routine) Facility: [facility] - Location: Laboratory Ordered By: Iker Ansari Visit Report/Discharge Packet Stand Alone Forms: Patient Portal/API, Stroke Signs & Symptoms Discharge Data Attending Provider: Estefany Heller Admit Date/Time: 05/29/24 14:58 Quality VTE Deep Vein Thrombosis/Pulmonary Embolism Present on Admission: No
== END 2024-06-01 11:15 | disposition home or self-care (01) ==
LOC: ED 14:35 → AC 14:59
PROVIDERS: Admitting Provider Surgery; Emergency Provider Emergency Medicine; Referring Provider Emergency Medicine; Visit Provider Surgery
DX: S22.41XA Multiple fractures of ribs, right side, initial encounter for closed fracture (principal); J90 Pleural effusion, not elsewhere classified; S80.02XA Contusion of left knee, initial encounter; W17.89XA Other fall from one level to another, initial encounter; Y92.814 Boat as the place of occurrence of the external cause
CPT/HCPCS: 36415; 71045; 71260; 73562; 74177; 80053; 83605; 85025; 96372; 96374; 96375; 96376; 97116; 97162; 97530; 99231; 99233; 99238; 99284; G0378; J1170; J1644; J2270; J2405; Q9967